=== PATIENT | female | born 1980 | race Caucasian/White ===

== ENCOUNTER 2017-02-28 20:49 | Emergency (ER) | payer BC, MEDICAID ==
[~2017-02-28] VITALS: Ht 157.5 cm; Wt 76.7 kg
[~2017-02-28 20:49] MED LIST: ADVAIR IH; XOPENEX IH
[2017-03-01] MEDS ORDERED: ibuprofen 200mg tablet PO ONE (01:25)
[2017-03-01 01:47] VITALS: BP 119/77
== END 2017-03-01 01:49 | disposition home or self-care (01) ==
LOC: ER 20:52
DX: S93.491A Sprain of other ligament of right ankle, initial encounter (principal); J45.909 Unspecified asthma, uncomplicated; Z90.49 Acquired absence of other specified parts of digestive tract; Z98.890 Other specified postprocedural states; Z91.040 Latex allergy status; Z88.6 Allergy status to analgesic agent; X50.1XXA Overexertion from prolonged static or awkward postures, initial encounter; Y93.02 Activity, running; Y92.89 Other specified places as the place of occurrence of the external cause; Y99.9 Unspecified external cause status
CPT/HCPCS: 29125; 29515; 73610; 99284